=== PATIENT | female | born 1965 | race Caucasian/White ===

== ENCOUNTER 2016-12-04 19:51 | Emergency (ER) | payer OTHER ==
[2016-12-04 20:02] VITALS: BP 112/79
--- NOTE | 2016-12-04 20:16 | ED.PDOC ---
General ED Provider: Dr. DARLIN MCLAUGHLIN Chief Complaint: Abdominal Pain Stated Complaint: Came for the left flank pain for 2-3 days, vomited 2 times,. has problems with overies, worried about it. Time Seen by Physician: 20:13 Mode of Arrival: Walk-In Information Source: Patient Primary Care Provider: JW HAIRSTON Nursing and Triage Documentation Reviewed and Agree: Yes GI Complaint Exam - Abdominal Pain Complaint/Exam Onset: Gradual Symptoms Are: Still present Timing: Constant Initial Severity: Moderate Current Severity: Moderate Location of Pain: LLQ Radiates To: Reports: Flank Character: Reports: Aching, Throbbing Aggravating: Reports: Movement Alleviating: Reports: None Associated Signs and Symptoms: Reports: Dysuria, Urinary frequency, Nausea, Vomiting. Denies: Diaphoresis, Fever, Cough, Chest pain, Dizziness, Back pain, Constipation, Blood in stool, Decreased urine output, Decreased appetite, Vaginal bleeding, Vaginal discharge, Diarrhea, Sore throat, Decreased activity AAA Risk Factors: Reports: None Cardiac Risk Factors: Reports: None Ectopic Risk Factors: Reports: None Ovarian Torsion Risk Factors: Reports: None Surgical Obstruction Risk Factors: Reports: None Related Surgical History: Reports: None Patient Rh Status: Unknown Abdominal Findings: Absent: Pulsatile mass, Abdominal distention, Unequal femoral pulses Differential Diagnoses: Diverticulitis, Gastroenteritis, Ovarian Cyst Review of Systems - Review Of Systems Constitutional: Reports: No symptoms Eyes: Reports: No symptoms Ears, Nose, Mouth, Throat: Reports: No symptoms Respiratory: Reports: No symptoms Cardiac: Reports: No symptoms GI: Reports: Abdominal pain : Reports: No symptoms Musculoskeletal: Reports: No symptoms Skin: Reports: No symptoms Neurological: Reports: No symptoms Endocrine: Reports: No symptoms Hematologic/Lymphatic: Reports: No symptoms All Other Systems: Reviewed and Negative Past Medical History - Past Medical History Previously Healthy: Yes Endocrine: Reports: Hypothyroid, Dyslipidemia Cardiovascular: Reports: Hypertension Respiratory: Reports: COPD Hematological: Reports: None Gastrointestinal: Reports: None Genitourinary: Reports: None Neuro/Psych: Reports: Migraine Musculoskeletal: Reports: None Cancer: Reports: None Last Menstrual Period: 2009 hyst complete - Surgical History General Surgical History: Reports: Gastric Bypass - Family History Family History: Reports: None - Social History Smoking Status: Former smoker Hx Substance Use: No Alcohol Screening: None - Immunizations Tetanus Shot up to Date: Yes Physical Exam - Physical Exam Appearance: Well-appearing, Obese Eyes: EOMI ENT: Ears normal, Nose normal, Oropharynx normal Respiratory: Airway patent, Breath sounds clear, Breath sounds equal, Respirations nonlabored Cardiovascular: RRR, Pulses normal, No rub, No murmur GI/: Soft, Tender (left lower q.) Musculoskeletal: Normal strength, ROM intact, No edema, No calf tenderness Skin: Warm, Dry, Normal color Neurological: Sensation intact, Motor intact, Reflexes intact, Cranial nerves intact, Alert, Oriented Psychiatric: Affect appropriate, Mood appropriate Interpretation - Radiology Interpretation Radiology Interpretation By: Radiologist Radiology Results: Positive (ventral hernia, constipation) Critical Care Note - Critical Care Note Total Time (mins): 30 Course - Course Hematology/Chemistry: 12/04/16 20:40 12/04/16 20:40 Orders, Labs, Meds: Lab Review 12/04/16 12/04/16 12/04/16 20:29 20:40 20:40 WBC 4.27 L RBC 4.04 L Hgb 12.2 Hct 36.4 L MCV 90.1 MCH 30.2 MCHC 33.5 RDW Coeff of [place] 13.2 Plt Count 230 Immature Gran % (Auto) 0.2 Neut % (Auto) 60.2 Lymph % (Auto) 23.9 [place] % (Auto) 11.5 H Eos % (Auto) 3.5 Baso % (Auto) 0.7 Immature Gran # (Auto) 0.0 Neut # 2.6 Lymph # 1.0 [place] # 0.5 Eos # 0.2 Baso # 0.0 Sodium 142 Potassium 4.0 Chloride 112 H Carbon Dioxide 25 Anion Gap 9.0 BUN 17 Creatinine 0.84 Estimated GFR (MDRD) 71.00 BUN/Creatinine Ratio 20.23 Glucose 100 Calcium 8.2 Total Bilirubin 0.50 AST 16 ALT 17 Alkaline Phosphatase 70 Total Protein 5.9 L Albumin 3.1 L Globulin 2.8 Albumin/Globulin Ratio 1.11 Urine Color Yellow Urine Clarity Clear Urine pH 5.5 Ur Specific [place] 1.025 Urine Protein Negative Urine Glucose (UA) Negative Urine Ketones Trace Urine Blood Negative Urine Nitrite Negative Urine Bilirubin Negative Urine Urobilinogen 1.0 Ur Leukocyte Esterase Negative Orders Category Date Time Status CBC W/ AUTO DIFF Stat LAB 12/04/16 20:40 Completed COMPREHENSIVE METABOLIC PANEL Stat LAB 12/04/16 20:40 Completed URINALYSIS C & S IF INDICATED Stat LAB 12/04/16 20:29 Completed Magnesium Citrate [Citrate of Magnesia] MEDS 12/04/16 21:24 Stat 10 oz PO ONCE STA Meperidine HCl/Pf [Demerol 25 mg/ml Syringe] MEDS 12/04/16 20:12 Discontinued 25 mg IM ONCE STA Ondansetron HCl/Pf [Zofran 4 mg/2 ml] MEDS 12/04/16 20:12 Discontinued 4 mg IM ONCE STA CT ABDOMEN/PELVIS WO CONTRAST Stat RADS 12/04/16 20:12 Completed Medications Discontinued Medications Generic Name Dose Route Start Last Admin Trade Name Freq PRN Reason Stop Dose Admin Meperidine HCl 25 mg 12/04/16 20:12 12/04/16 20:29 Demerol 25 Mg/Ml Syringe IM 12/04/16 20:13 25 mg ONCE STA Administration Ondansetron HCl 4 mg 12/04/16 20:12 12/04/16 20:30 Zofran 4 Mg/2 Ml IM 12/04/16 20:13 4 mg ONCE STA Administration Vital Signs: Temp Pulse Resp BP Pulse Ox 12/04/16 19:53 100.1 F H 96 H 20 112/79 99 Departure - Departure Time of Disposition: 21:28 Disposition: HOME SELF-CARE Discharge Problem: Abdominal pain, Ventral hernia without obstruction or gangrene Instructions: Constipation (ED) Condition: Good Pt referred to PMD for follow-up: Yes Additional Instructions: INCREASE FIBRE DIET, INCREASE HYDRATION KEEP F/U WITH PMD Prescriptions: Polyethylene Glycol 3350 [Miralax] 17 gm PO DAILY #30 powd.pack Allergies/Adverse Reactions: Allergies cefuroxime axetil [From Ceftin] Adverse Reaction (Verified 12/04/16 19:59) Anaphylaxis Penicillins Adverse Reaction (Verified 12/04/16 19:59) Anaphylaxis Home Medications: Ambulatory Orders Albuterol Sulfate [Proair Hfa] 2 puff IH Q4H PRN 12/04/16 Atorvastatin Calcium [Lipitor] 10 mg PO DAILY 12/04/16 Budesonide/Formoterol Fumarate [Symbicort 160-4.5 Mcg Inhaler] 1 puff IH BID PRN 12/04/16 Bupropion HCl [Bupropion Xl] 300 mg PO DAILY 12/04/16 Citalopram Hydrobromide [Citalopram HBr] 20 mg PO DAILY 12/04/16 Clonazepam 0.5 mg PO BID 12/04/16 Levothyroxine Sodium [Synthroid] 100 mcg PO QDAC 12/04/16 Polyethylene Glycol 3350 [Miralax] 17 gm PO DAILY #30 powd.pack 12/04/16 Prazosin HCl 2 mg PO BID 12/04/16 Ramelteon [Rozerem] 8 mg pe PO BEDTIME 12/04/16 Sumatriptan Succinate [Imitrex] 25 mg PO ONCE PRN 12/04/16 Trazodone HCl 50 - 100 mg PO BEDTIME 12/04/16 Disposition Discussed With: Patient
[2016-12-04] MEDS: DEMEROL 25 MG/ML SYRINGE IM STA (20:29)
[2016-12-04] MEDS: ZOFRAN 4 MG/2 ML IM STA (20:30)
[2016-12-04 20:36] LABS: BILIRUBIN,URINE Negative (NEGATIVE); KETONES,URINE Trace (NEGATIVE); LEUKOCYTE ESTERASE ,URINE Negative (NEGATIVE); NITRITE,URINE Negative (NEGATIVE); PH,URINE 5.5 (5-9); PROTEIN,URINE Negative (NEGATIVE); URINE, BLOOD Negative (NEGATIVE)
--- NOTE | 2016-12-04 20:42 | CT ---
EXAM: CT abdomen pelvis without contrast TECHNIQUE: Helical axial CT of the abdomen and pelvis was performed without contrast with coronal an d sagittal reconstructions. COMPARISON: CT abdomen from 04/28/2007 HISTORY: Left flank pain FINDINGS: There is no acute abnormality. Specifically there is no mesenteric inflammation, free air, free fluid or bowel wall thickening or edema or pathologic lymph nodes or obstruction or ileus. There has been prior gastric surgery. The liver, spleen, pancreas,and adrenal glands show no acute abnormality. There is a calcification in the spleen. Lung bases are well-aerated. There is no hiatal hernia. There has been prior cholecyste ctomy. There is no biliary or pancreatic ductal dilatation. There are no suspicious renal masses or large cysts and no hydronephrosis. There are no kidney stones . Both ureters demonstrate normal course and caliber. There is no filling defect in the urinary blad yessenia. There has been prior hysterectomy. There are multiple phleboliths in the pelvis. The appendix is not definitely seen. There are some scattered colonic diverticula. There is no inflam mation. There is an anterior abdominal wall hernia on the left which contains loops of bowel. There is no incarceration or strangulation or obstruction. There is an inguinal hernia on the right contai ozzy a few loops of bowel as well with no evidence for obstruction. There is some calcific atheroscle rosis of the aorta. There is no aneurysm. There are no acute osseous abnormalities. IMPRESSION: 1. There is no evidence for left nephrolithiasis or hydronephrosis. 2. Right inguinal hernia and anterior abdominal wall hernia as described containing loops of bowel w ith no obstruction or incarceration. 3. Other miscellaneous findings as above.
[2016-12-04 20:43] LABS: ADD URINE MICROSCOPIC NO
[2016-12-04 20:44] LABS: BASOPHILS % (AUTO) 0.7 % (0.0-3.0); EOSINOPHILS # (AUTO) 0.2 K/ul (0.0-0.7); EOSINOPHILS % (AUTO) 3.5 % (0.0-7.0); HEMATOCRIT 36.4 % (37.0-47.0); HEMOGLOBIN 12.2 g/dl (12.0-16.0); IMMATURE GRANULOCYTE % (AUTO) 0.2 % (0.0-5.0); LYMPHOCYTES % (AUTO) 23.9 (10.0-50.0); MEAN CORPUSCULAR HEMOGLOBIN 30.2 pg (27.0-31.0); MEAN CORPUSCULAR HGB CONC 33.5 (31.8-35.4); MEAN CORPUSCULAR VOLUME 90.1 fl (81.0-99.0); MONOCYTES # (AUTO) 0.5 K/uL (0.4-2.0); MONOCYTES % (AUTO) 11.5 (0-10); NEUTROPHILS # (AUTO) 2.6 K/ul (2.0-6.9); NEUTROPHILS % (AUTO) 60.2; PLATELET COUNT 230 10^3/uL (140-440); RED BLOOD COUNT 4.04 10^6/ul (4.20-5.40); WHITE BLOOD COUNT 4.27 K/ul (4.6-10.2)
[2016-12-04 20:59] VITALS: BMI 40.5
[2016-12-04 21:03] LABS: ALBUMIN 3.1 g/dL (3.4-5.0); ALBUMIN/GLOBULIN RATIO 1.11; BILIRUBIN,TOTAL 0.5 mg/dL (0.00-1.20); BUN/CREATININE RATIO 20.23; CALCIUM 8.2 mg/dL (8.2-10.2); CREATININE 0.84 mg/dL (0.60-1.30); TOTAL PROTEIN 5.9 g/dL (6.4-8.2)
[2016-12-04] MEDS: CITRATE OF MAGNESIA PO STA (21:27)
[2016-12-04 21:30] VITALS: TEMP 98.5
== END 2016-12-04 21:49 | disposition home or self-care (01) ==
LOC: ED 19:51
DX: K43.9 Ventral hernia without obstruction or gangrene (principal); K59.00 Constipation, unspecified; R30.0 Dysuria; R35.0 Frequency of micturition; R11.2 Nausea with vomiting, unspecified; E03.9 Hypothyroidism, unspecified; E78.5 Hyperlipidemia, unspecified; I10 Essential (primary) hypertension; Z98.84 Bariatric surgery status; Z79.899 Other long term (current) drug therapy
CPT/HCPCS: 36415; 80053; 81001; 85025; 96372; 99283

== ENCOUNTER 2017-07-08 11:19 | Outpatient (CLI) ==
--- NOTE | 2017-07-11 09:31 | MAMMO ---
EXAM: Bilateral digital screening mammogram (2-D and 3-D) History: Screening Comparison: Bilateral mammogram 05/14/2013 Findings: MLO and CC views of bilateral breasts demonstrate scattered fibroglandular breast parenchym a. CAD was reviewed by the radiologist. Stable benign bilateral vascular breast calcifications. Th ere are no dominant masses, no suspicious microcalcifications and no architectural distortions Impression: Benign stable mammogram. Recommend followup routine screening mammography in 1 year. BIRADS 2
== END 2017-07-08 11:20 | disposition home or self-care (01) ==
LOC: RAD 11:19
PROVIDERS: ATTEND Internal Medicine
DX: Z12.31 Encounter for screening mammogram for malignant neoplasm of breast (principal)
CPT/HCPCS: 77067

== ENCOUNTER 2018-07-13 09:32 | Outpatient (CLI) ==
--- NOTE | 2018-07-14 09:03 | MAMMO ---
EXAM: Bilateral digital screening mammogram (2-D and 3-D) History: Screening Comparison: Bilateral mammogram 07/08/2017 Findings: MLO and CC views of bilateral breasts demonstrate predominately fatty replaced breast pare nchyma. CAD was reviewed by the radiologist. Tomosynthesis was performed. There are no dominant ma sses, no suspicious microcalcifications and no architectural distortions Impression: Stable negative mammogram. Recommend followup routine screening mammography in 1 year. BI-RADS 1, negative
== END 2018-07-13 09:33 | disposition home or self-care (01) ==
LOC: RAD 09:32
PROVIDERS: ATTEND Internal Medicine
DX: Z12.31 Encounter for screening mammogram for malignant neoplasm of breast (principal)